=== PATIENT | male | born 1965 | race Caucasian/White ===

== ENCOUNTER 2018-06-16 16:25 | Emergency (ER) | payer OTHER ==
[~2018-06-16] VITALS: Ht 175.2 cm; Wt 90.7 kg
== END 2018-06-16 18:16 | disposition home or self-care (01) ==
LOC: ED 16:25
DX: S01.81XA Laceration without foreign body of other part of head, initial encounter (principal); W22.8XXA Striking against or struck by other objects, initial encounter; Y93.89 Activity, other specified; Y92.89 Other specified places as the place of occurrence of the external cause; Y99.8 Other external cause status